=== PATIENT | female | born 1995 ===

== ENCOUNTER 2023-10-25 15:43 | Emergency (ER) | payer BC | END 2023-10-25 17:36 | disposition home or self-care (01) | LOC: MW.ED 15:43 | DX: S29.011A Strain of muscle and tendon of front wall of thorax, initial encounter (principal); Z79.899 Other long term (current) drug therapy; W18.30XA Fall on same level, unspecified, initial encounter | CPT/HCPCS: 71101-26-LT; 71101-LT; 99283 ==